=== PATIENT | male | born 1970 | race Caucasian/White ===

== ENCOUNTER 2017-08-27 15:30 | Inpatient (IN) | payer OTHER ==
[2017-08-27 17:47] VITALS: BMI 28.8
--- NOTE | 2017-08-27 19:10 | HP ---
CIWA Score - CIWA Score Nausea/Vomitin-Mild Nausea/No Vomiting Muscle Tremors: 4-Moderate,w/Arms Extend Anxiety: 4-Mod. Anxious/Guarded Agitation: 4-Moderately Restless Paroxysmal Sweats: 3 Orientation: 0-Oriented Tacttile Disturbances: 0-None Auditory Disturbances: 0-None Visual Disturbances: 0-None Headache: 1-Very Mild CIWA-Ar Total Score: 17 Admission ROS BHS - HPI Chief Complaint: I am her for detox. Allergies/Adverse Reactions: Allergies Allergy/AdvReac Type Severity Reaction Status Date / Time Penicillins Allergy Verified 08/27/17 19:04 History of Present Illness: pt is a 47yr old male with a history of alcohol dependence seeking detox for treatment. Exam Limitations: No Limitations - Ebola screening Have you traveled outside of the country in the last 21 days: No Have you had contact with anyone from an Ebola affected area: No Have you been sick,other than usual withdrawal symptoms: No Do you have a fever: No - Review of Systems Constitutional: Chills, Diaphoresis, Loss of Appetite, Night Sweats, Changes in sleep, Unintentional Wgt. Loss EENT: reports: No Symptoms Reported Respiratory: reports: No Symptoms reported Cardiac: reports: Syncope GI: reports: Poor Appetite, Poor Fluid Intake : reports: No Symptoms Reported Musculoskeletal: reports: No Symptoms Reported Integumentary: reports: Flushing, Sweating Neuro: reports: Headache, Tingling, Tremors Endocrine: reports: Excessive Sweating, Flushing, Intolerance to Cold, Intolerance to Heat Hematology: reports: No Symptoms Reported Psychiatric: reports: Judgement Intact, Mood/Affect Appropiate, Orientated x3, Agitated, Anxious Other Systems: Reviewed and Negative Patient History - Patient Medical History Hx Anemia: No Hx Asthma: No Hx Chronic Obstructive Pulmonary Disease (COPD): No Hx Cancer: No Hx Cardiac Disorders: No Hx Congestive Heart Failure: No Hx Hypertension: Yes (not taking medication) Hx Hypercholesterolemia: Yes (not taking any medication) Hx Pacemaker: No HX Cerebrovascular Accident: No Hx Seizures: No Hx Dementia: No Hx Diabetes: No Hx Gastrointestinal Disorders: Yes (h/o acid reflux not taking any medication) Hx Liver Disease: No Hx Genitourinary Disorders: No Hx Sexually Transmitted Disorders: No Hx Renal Disease (ESRD): No Hx Thyroid Disease: No Hx Human Immunodeficiency Virus (HIV): No (negative) Hx Hepatitis C: No (negative) Hx Depression: No Hx Suicide Attempt: No (denies) Hx Bipolar Disorder: No Hx Schizophrenia: No - Patient Surgical History Past Surgical History: No - PPD History Previous Implant?: Yes Documented Results: Negative w/o proof Implanted On Prior [facility] Admission?: Yes PPD to be Administered?: No - Reproductive History Patient is a Female of Child Bearing Age (11 -55 yrs old): No - Smoking Cessation Smoking history: Current every day smoker Have you smoked in the past 12 months: Yes Aproximately how many cigarettes per day: 5 Hx Chewing Tobacco Use: No Initiated information on smoking cessation: Yes 'Breaking Loose' booklet given: 08/27/17 - Substance & Tx. History Hx Alcohol Use: Yes Hx Substance Use: No Substance Use Type: Alcohol Hx Substance Use Treatment: Yes (last detox at [facility] two months ago) - Substances Abused Alcohol Route: Oral Frequency: Daily Amount used: 10-12CANS OF 25oz BEER Age of first use: 14 Date of Last Use: 08/25/17 Family Disease History - Family Disease History Family Disease History: Diabetes: Mother, Other: Father (deceasec/ alcohol related.) Admission Physical Exam BHS - Vital Signs Vital Signs: Vital Signs - 24 hr 08/27/17 17:46 Temperature 98.7 F Pulse Rate 74 Respiratory 20 Rate Blood Pressure 148/103 - Physical General Appearance: Yes: Appropriately Dressed, Tremorous, Irritable, Sweating, Anxious HEENTM: Yes: Normal Voice, Nasal Congestion, Rhinorrhea Respiratory: Yes: Lungs Clear, Normal Breath Sounds, No Respiratory Distress Neck: Yes: No masses,lesions,Nodules Breast: Yes: Within Normal Limits Cardiology: Yes: Regular Rhythm, Regular Rate, S1, S2 Abdominal: Yes: Normal Bowel Sounds Genitourinary: Yes: Within Normal Limits Back: Yes: Normal Inspection Musculoskeletal: Yes: full range of Motion Extremities: Yes: Normal Inspection, Non-Tender, Tremors Neurological: Yes: Fully Oriented, Alert, Normal Response Integumentary: Yes: Normal Color, Diaphoresis Lymphatic: Yes: Within Normal Limits - Diagnostic (1) Alcohol dependence with uncomplicated withdrawal Current Visit: Yes Status: Chronic (2) Hypertension Current Visit: Yes Status: Chronic Qualifiers: Hypertension type: essential hypertension Qualified Code(s): I10 - Essential (primary) hypertension (3) Hypercholesteremia Current Visit: Yes Status: Chronic Cleared for Admission [facility] - Detox or Rehab [facility] Level of Care: Medically Managed Detox Regimen/Protocol: Librium [facility] Breath Alcohol Content Breath Alcohol Content: 0 Urine Drug Screen - Results Drug Screen Negative: Yes
[2017-08-27] MEDS ORDERED: guaiFENesin/D-METHORPHAN HB 10 ML UNIT-DOSE CUPS PO PRN (19:18)
[2017-08-27] MEDS ORDERED: NICOTINE POLACRILEX 4 MG GUM BUC PRN (19:18)
[2017-08-27] MEDS ORDERED: chlordiazePOXIDE HCL 25 MG CAPSULE PO PRN (19:18)
[2017-08-27] MEDS ORDERED: MAG HYDROX/AL HYDROX/SIMETH 30 ML UNIT-DOSE CUP PO PRN (19:18)
[2017-08-27] MEDS ORDERED: MAGNESIUM CITRATE 300 ML BOTTLE PO PRN (19:18)
[2017-08-27] MEDS ORDERED: LOPERAMIDE HCL 2 MG CAPSULE PO PRN (19:18)
[2017-08-27] MEDS ORDERED: MAGNESIUM HYDROX 2400MG/30ML ORAL SUSPENSION 30 ML CUP PO PRN (19:18)
[2017-08-27] MEDS ORDERED: P-EPHED 60MG/TRIPROLIDI 2.5MG TABLET PO PRN (19:18)
[2017-08-27] MEDS ORDERED: MENTHOL/PHENOL 1 EACH UD MM PRN (19:18)
[2017-08-27] MEDS ORDERED: ACETAMINOPHEN 325 MG TABLET (FP) PO PRN (19:18)
[2017-08-27] MEDS ORDERED: hydrOXYzine PAMOATE 50 MG CAPSULE (FP) PO PRN (19:18)
[2017-08-27] MEDS ORDERED: IBUPROFEN 400 MG TABLET (FP) PO PRN (19:18)
[2017-08-27] MEDS ORDERED: MELATONIN 5 MG TABLETS PO PRN (22:00)
[2017-08-27] MEDS: chlordiazePOXIDE HCL 25 MG CAPSULE PO ONE (23:56)
[2017-08-27] MEDS: THIAMINE HCL 100 MG TABLET (FP) PO SCH (23:57)
[2017-08-28] MEDS: chlordiazePOXIDE HCL 25 MG CAPSULE PO ONE (00:05)
[2017-08-28] MEDS: chlordiazePOXIDE HCL 25 MG CAPSULE PO SCH ×5 (00:05→22:02)
[2017-08-28] MEDS: ONDANSETRON *ODT* 4 MG TABLET SL PRN (05:53)
[2017-08-28] MEDS: PRENATAL VITAMINS W/ FOLIC ACID TABLET (FP) PO SCH (10:05)
[2017-08-28] MEDS: NICOTINE 21 MG/24 HOURS TOPICAL PATCH TD SCH (10:05)
[2017-08-28 10:24] LABS: HEMATOCRIT 43.4 % (35.4-49); HEMOGLOBIN 14.6 GM/dL (11.7-16.9); MCHC 33.6 g/dl (32.0-35.9); MEAN PLT VOLUME 9.4 fl (7.5-11.1); PLATELET COUNT 115 K/MM3 (134-434); RBC 4.43 M/mm3 (4.00-5.60); RDW 13.9 % (11.9-15.9); WHITE BLOOD COUNT 5.1 K/mm3 (4.0-10.0)
[2017-08-28 10:52] LABS: CHLORIDE 102 mmol/L (98-107); POTASSIUM 4.4 mmol/L (3.5-5.1); SODIUM 138 mmol/L (136-145)
[2017-08-28 11:10] LABS: ALBUMIN 4.1 g/dl (3.4-5.0); ALK PHOS 93 U/L (45-117); ANION GAP 6 (8-16); BILIRUBIN,TOTAL 0.9 mg/dL (0.2-1.0); BLOOD UREA NITROGEN 10 mg/dL (7-18); CALCIUM 9.5 mg/dL (8.5-10.1); CO2 30 mmol/L (21-32); GLUCOSE,RANDOM 101 mg/dL (74-106); SGOT/AST 346 U/L (15-37); SGPT/ALT 296 U/L (12-78); TOT PROT 8.1 g/dl (6.4-8.2)
--- NOTE | 2017-08-28 11:10 | PN ---
S CIWA - CIWA Score Nausea/Vomitin-Int. Nausea w/Dry Heave Muscle Tremors: 4-Moderate,w/Arms Extend Anxiety: 4-Mod. Anxious/Guarded Agitation: 4-Moderately Restless Paroxysmal Sweats: 1-Minimal Palms Moist Orientation: 0-Oriented Tacttile Disturbances: 1-Very Mild Itch/Numbness Auditory Disturbances: 0-None Visual Disturbances: 0-None Headache: 0-None Present CIWA-Ar Total Score: 18 BHS Progress Note (SOAP) Subjective: ANXIETY,TREMORS,SWEATS,FEET PAIN,NAUSEA. Objective: 08/28/17 11:09 Vital Signs 08/28/17 08/28/17 08/28/17 06:10 06:28 09:18 Temperature 98.5 F 97.1 F L Pulse Rate 68 82 Respiratory 18 18 18 Rate Blood Pressure 139/79 118/84 Laboratory Tests 08/28/17 07:30 WBC 5.1 RBC 4.43 Hgb 14.6 Hct 43.4 MCV 98.0 H MCH 33.0 MCHC 33.6 RDW 13.9 Plt Count 115 L MPV 9.4 OTHER LABS PENDING Assessment: 08/28/17 11:09 WITHDRAWAL SX Plan: CONTINUE DETOX [facility] PRN
[2017-08-28 15:35] LABS: URINE APPEARANCE SLCLOUDY; URINE BILIRUBIN NEGATIVE (<2.0 mg/dL); URINE BLOOD NEGATIVE (NEGATIVE); URINE COLOR AMBER; URINE GLUCOSE (UA) NEGATIVE (NEGATIVE); URINE KETONE NEGATIVE (NEGATIVE); URINE LEUK ESTERASE NEGATIVE (NEGATIVE); URINE NITRITE NEGATIVE (NEGATIVE); URINE UROBILINOGEN 4.0 E.U/dl mg/dL (0.2-1.0)
[2017-08-28 15:36] LABS: URINE PROTEIN 1+ (NEGATIVE)
[2017-08-28 15:41] LABS: CALCIUM OXALATE CRYSTALS MANY /hpf (NONE SEEN); EPI CELLS RARE /HPF (FEW); URINE MUCUS MANY
[2017-08-28] MEDS: THIAMINE HCL 100 MG TABLET (FP) PO SCH (22:02)
[2017-08-29] MEDS: chlordiazePOXIDE HCL 25 MG CAPSULE PO SCH ×3 (05:08→17:32)
[2017-08-29] MEDS: NICOTINE 21 MG/24 HOURS TOPICAL PATCH TD SCH (10:03)
[2017-08-29] MEDS: PRENATAL VITAMINS W/ FOLIC ACID TABLET (FP) PO SCH (10:03)
--- NOTE | 2017-08-29 11:13 | PN ---
S CIWA - CIWA Score Nausea/Vomitin Muscle Tremors: 4-Moderate,w/Arms Extend Anxiety: 4-Mod. Anxious/Guarded Agitation: 4-Moderately Restless Paroxysmal Sweats: 1-Minimal Palms Moist Orientation: 0-Oriented Tacttile Disturbances: 0-None Auditory Disturbances: 0-None Visual Disturbances: 0-None Headache: 0-None Present CIWA-Ar Total Score: 16 BHS Progress Note (SOAP) Subjective: ANXIETY,SLIGHT TREMORS,DIARRHEA. REPORTS SLIGHT BLEEDING IN TISSUE AFTER BM BUT NOT IN BOWL. Objective: 08/29/17 11:10 Vital Signs 08/29/17 08/29/17 08/29/17 03:30 06:01 06:30 Temperature 98.3 F Pulse Rate 64 Respiratory 18 18 18 Rate Blood Pressure 134/86 08/29/17 10:08 Temperature 98.9 F Pulse Rate 75 Respiratory 18 Rate Blood Pressure 128/92 Laboratory Tests 08/28/17 08/28/17 08/28/17 07:30 07:30 07:30 WBC 5.1 RBC 4.43 Hgb 14.6 Hct 43.4 MCV 98.0 H MCH 33.0 MCHC 33.6 RDW 13.9 Plt Count 115 L MPV 9.4 Sodium 138 Potassium 4.4 Chloride 102 Carbon Dioxide 30 Anion Gap 6 L BUN 10 Creatinine 1.0 Creat Clearance w eGFR > 60 Random Glucose 101 Calcium 9.5 Total Bilirubin 0.9 AST 346 H ALT 296 H Alkaline Phosphatase 93 Total Protein 8.1 Albumin 4.1 Urine Color Urine Appearance Urine pH Ur Specific [place] Urine Protein Urine Glucose (UA) Urine Ketones Urine Blood Urine Nitrite Urine Bilirubin Urine Urobilinogen Ur Leukocyte Esterase Urine WBC (Auto) Urine RBC (Auto) Ur Epithelial Cells Calcium Oxalate Crystal Urine Mucus RPR Titer Nonreactive 08/28/17 11:20 WBC RBC Hgb Hct MCV MCH MCHC RDW Plt Count MPV Sodium Potassium Chloride Carbon Dioxide Anion Gap BUN Creatinine Creat Clearance w eGFR Random Glucose Calcium Total Bilirubin AST ALT Alkaline Phosphatase Total Protein Albumin Urine Color Latisha Urine Appearance Slcloudy Urine pH 6.0 Ur Specific [place] 1.026 Urine Protein 1+ H Urine Glucose (UA) Negative Urine Ketones Negative Urine Blood Negative Urine Nitrite Negative Urine Bilirubin Negative Urine Urobilinogen 4.0 e.u/dl Ur Leukocyte Esterase Negative Urine WBC (Auto) None Urine RBC (Auto) 1 Ur Epithelial Cells Rare Calcium Oxalate Crystal Many Urine Mucus Many RPR Titer Assessment: 08/29/17 11:11 WITHDRAWAL SX Plan: CONTINUE DETOX INCREASE PO FLUIDS TOLERATED REPEAT CMP;INR TODAY
[2017-08-29 15:13] LABS: INR 0.94 (0.82-1.09); PROTHROMBIN TIME (PATIENT) 10.6 SEC (9.7-13.0)
[2017-08-29 15:23] LABS: CHLORIDE 103 mmol/L (98-107); POTASSIUM 4.4 mmol/L (3.5-5.1); SODIUM 138 mmol/L (136-145)
[2017-08-29 15:50] LABS: ALBUMIN 3.9 g/dl (3.4-5.0); ALK PHOS 81 U/L (45-117); ANION GAP 9 (8-16); BILIRUBIN,TOTAL 0.5 mg/dL (0.2-1.0); BLOOD UREA NITROGEN 8 mg/dL (7-18); CALCIUM 9.5 mg/dL (8.5-10.1); CO2 26 mmol/L (21-32); CREATININE 0.8 mg/dL (0.7-1.3); GLUCOSE,RANDOM 90 mg/dL (74-106); SGOT/AST 186 U/L (15-37); SGPT/ALT 226 U/L (12-78); TOT PROT 7.8 g/dl (6.4-8.2)
[2017-08-29] MEDS: THIAMINE HCL 100 MG TABLET (FP) PO SCH (22:04)
[2017-08-29] MEDS: chlordiazePOXIDE 5 MG CAPSULE PO SCH (22:04)
[2017-08-29] MEDS: ONDANSETRON *ODT* 4 MG TABLET SL PRN (22:06)
[2017-08-30] MEDS: chlordiazePOXIDE 5 MG CAPSULE PO SCH ×3 (05:43→17:40)
[2017-08-30] MEDS: PRENATAL VITAMINS W/ FOLIC ACID TABLET (FP) PO SCH (10:07)
[2017-08-30] MEDS: NICOTINE 21 MG/24 HOURS TOPICAL PATCH TD SCH (10:07)
[2017-08-30] MEDS ORDERED: WITCH HAZEL 50% (TUCKS) 40 PAD/JAR PAD TP PRN (10:35)
--- NOTE | 2017-08-30 12:32 | PN ---
BHS Progress Note (SOAP) Subjective: Interrupted Sleep, Tremors, H/A, Nausea. Objective: PATIENT A & O X 3, OBSERVED AMBULATING ON UNIT. NO ACUTE DISTRESS. PATIENT DENIES CHEST PAIN. 08/30/17 12:29 Vital Signs Temperature 97.2 F L 08/30/17 09:01 Pulse Rate 94 H 08/30/17 09:01 Respiratory Rate 18 08/30/17 09:01 Blood Pressure 113/84 08/30/17 09:01 O2 Sat by Pulse Oximetry (%) Laboratory Tests 08/28/17 08/28/17 08/28/17 07:30 07:30 07:30 WBC 5.1 RBC 4.43 Hgb 14.6 Hct 43.4 MCV 98.0 H MCH 33.0 MCHC 33.6 RDW 13.9 Plt Count 115 L MPV 9.4 PT with INR INR Sodium 138 Potassium 4.4 Chloride 102 Carbon Dioxide 30 Anion Gap 6 L BUN 10 Creatinine 1.0 Creat Clearance w eGFR > 60 Random Glucose 101 Calcium 9.5 Total Bilirubin 0.9 AST 346 H ALT 296 H Alkaline Phosphatase 93 Total Protein 8.1 Albumin 4.1 Urine Color Urine Appearance Urine pH Ur Specific [place] Urine Protein Urine Glucose (UA) Urine Ketones Urine Blood Urine Nitrite Urine Bilirubin Urine Urobilinogen Ur Leukocyte Esterase Urine WBC (Auto) Urine RBC (Auto) Ur Epithelial Cells Calcium Oxalate Crystal Urine Mucus RPR Titer Nonreactive 08/28/17 08/29/17 08/29/17 11:20 11:50 11:50 WBC RBC Hgb Hct MCV MCH MCHC RDW Plt Count MPV PT with INR 10.60 INR 0.94 Sodium 138 Potassium 4.4 Chloride 103 Carbon Dioxide 26 Anion Gap 9 BUN 8 Creatinine 0.8 Creat Clearance w eGFR > 60 Random Glucose 90 Calcium 9.5 Total Bilirubin 0.5 D AST 186 H D ALT 226 H D Alkaline Phosphatase 81 Total Protein 7.8 Albumin 3.9 Urine Color Latisha Urine Appearance Slcloudy Urine pH 6.0 Ur Specific [place] 1.026 Urine Protein 1+ H Urine Glucose (UA) Negative Urine Ketones Negative Urine Blood Negative Urine Nitrite Negative Urine Bilirubin Negative Urine Urobilinogen 4.0 e.u/dl Ur Leukocyte Esterase Negative Urine WBC (Auto) None Urine RBC (Auto) 1 Ur Epithelial Cells Rare Calcium Oxalate Crystal Many Urine Mucus Many RPR Titer LABS NOTED. RESULTS OF REPEAT CMP AND PT/INR NOTED. 08/30/17 12:33 Assessment: 08/30/17 12:31 WITHDRAWAL SYMPTOMS. THROMBOCYTOPENIA. ELEVATED LIVER ENZYMES. 08/30/17 12:32 Plan: CONTINUE DETOX. INCREASE DAILY PO FLUID INTAKE.
[2017-08-30] MEDS: THIAMINE HCL 100 MG TABLET (FP) PO SCH (22:14)
[2017-08-30] MEDS: chlordiazePOXIDE HCL 10 MG CAPSULE PO SCH (22:14)
[2017-08-31] MEDS: chlordiazePOXIDE HCL 10 MG CAPSULE PO SCH (05:18)
[2017-08-31] MEDS: ONDANSETRON *ODT* 4 MG TABLET SL PRN (05:19)
[2017-08-31 06:14] VITALS: BP 140/89; PULSE 70; TEMP 97.2
--- NOTE | 2017-08-31 17:52 | PN ---
S Progress Note (SOAP) Subjective: Patient denies current Detox symptoms and reports that he feels well overall. Objective: PATIENT A & O X 3, OBSERVED AMBULATING ON UNIT. NO ACUTE DISTRESS. 08/31/17 17:51 Vital Signs Temperature 97.2 F L 08/31/17 06:13 Pulse Rate 70 08/31/17 06:13 Respiratory Rate 18 08/31/17 06:13 Blood Pressure 140/89 08/31/17 06:13 O2 Sat by Pulse Oximetry (%) Laboratory Tests 08/28/17 08/28/17 08/28/17 07:30 07:30 07:30 WBC 5.1 RBC 4.43 Hgb 14.6 Hct 43.4 MCV 98.0 H MCH 33.0 MCHC 33.6 RDW 13.9 Plt Count 115 L MPV 9.4 PT with INR INR Sodium 138 Potassium 4.4 Chloride 102 Carbon Dioxide 30 Anion Gap 6 L BUN 10 Creatinine 1.0 Creat Clearance w eGFR > 60 Random Glucose 101 Calcium 9.5 Total Bilirubin 0.9 AST 346 H ALT 296 H Alkaline Phosphatase 93 Total Protein 8.1 Albumin 4.1 Urine Color Urine Appearance Urine pH Ur Specific [place] Urine Protein Urine Glucose (UA) Urine Ketones Urine Blood Urine Nitrite Urine Bilirubin Urine Urobilinogen Ur Leukocyte Esterase Urine WBC (Auto) Urine RBC (Auto) Ur Epithelial Cells Calcium Oxalate Crystal Urine Mucus RPR Titer Nonreactive 08/28/17 08/29/17 08/29/17 11:20 11:50 11:50 WBC RBC Hgb Hct MCV MCH MCHC RDW Plt Count MPV PT with INR 10.60 INR 0.94 Sodium 138 Potassium 4.4 Chloride 103 Carbon Dioxide 26 Anion Gap 9 BUN 8 Creatinine 0.8 Creat Clearance w eGFR > 60 Random Glucose 90 Calcium 9.5 Total Bilirubin 0.5 D AST 186 H D ALT 226 H D Alkaline Phosphatase 81 Total Protein 7.8 Albumin 3.9 Urine Color Latisha Urine Appearance Slcloudy Urine pH 6.0 Ur Specific [place] 1.026 Urine Protein 1+ H Urine Glucose (UA) Negative Urine Ketones Negative Urine Blood Negative Urine Nitrite Negative Urine Bilirubin Negative Urine Urobilinogen 4.0 e.u/dl Ur Leukocyte Esterase Negative Urine WBC (Auto) None Urine RBC (Auto) 1 Ur Epithelial Cells Rare Calcium Oxalate Crystal Many Urine Mucus Many RPR Titer LABS NOTED. Assessment: 08/31/17 17:52 COMPLETION OF DETOX REGIMEN. Plan: PATIENT SCHEDULED FOR DISCHARGE FROM DETOX UNIT TODAY.
--- NOTE | 2017-08-31 17:56 | DS ---
[facility] Detox Discharge Summary Admission Date: 08/27/17 Discharge Date: 08/31/17 - History Present History: Alcohol Dependence Additional Comments: PATIENT ADVISED TO CONSIDER LOCAL 12-STEP / AA OUTPATIENT SUPPORT GROUPS FOR AFTERCARE. PATIENT WAS DISCHARGED FROM DETOX UNIT IN STABLE MEDICAL CONDITION. Pertinent Past History: HTN (no meds.), Hypercholesterolemia (no meds.), Acid Reflux, Elevated Liver Enzymes. - Physical Exam Results Vital Signs: Vital Signs Temperature 97.2 F L 08/31/17 06:13 Pulse Rate 70 08/31/17 06:13 Respiratory Rate 18 08/31/17 06:13 Blood Pressure 140/89 08/31/17 06:13 O2 Sat by Pulse Oximetry (%) Pertinent Admission Physical Exam Findings: WITHDRAWAL SYMPTOMS. Laboratory Tests 08/28/17 08/28/17 08/28/17 07:30 07:30 07:30 WBC 5.1 RBC 4.43 Hgb 14.6 Hct 43.4 MCV 98.0 H MCH 33.0 MCHC 33.6 RDW 13.9 Plt Count 115 L MPV 9.4 PT with INR INR Sodium 138 Potassium 4.4 Chloride 102 Carbon Dioxide 30 Anion Gap 6 L BUN 10 Creatinine 1.0 Creat Clearance w eGFR > 60 Random Glucose 101 Calcium 9.5 Total Bilirubin 0.9 AST 346 H ALT 296 H Alkaline Phosphatase 93 Total Protein 8.1 Albumin 4.1 Urine Color Urine Appearance Urine pH Ur Specific [place] Urine Protein Urine Glucose (UA) Urine Ketones Urine Blood Urine Nitrite Urine Bilirubin Urine Urobilinogen Ur Leukocyte Esterase Urine WBC (Auto) Urine RBC (Auto) Ur Epithelial Cells Calcium Oxalate Crystal Urine Mucus RPR Titer Nonreactive 08/28/17 08/29/17 08/29/17 11:20 11:50 11:50 WBC RBC Hgb Hct MCV MCH MCHC RDW Plt Count MPV PT with INR 10.60 INR 0.94 Sodium 138 Potassium 4.4 Chloride 103 Carbon Dioxide 26 Anion Gap 9 BUN 8 Creatinine 0.8 Creat Clearance w eGFR > 60 Random Glucose 90 Calcium 9.5 Total Bilirubin 0.5 D AST 186 H D ALT 226 H D Alkaline Phosphatase 81 Total Protein 7.8 Albumin 3.9 Urine Color Latisha Urine Appearance Slcloudy Urine pH 6.0 Ur Specific [place] 1.026 Urine Protein 1+ H Urine Glucose (UA) Negative Urine Ketones Negative Urine Blood Negative Urine Nitrite Negative Urine Bilirubin Negative Urine Urobilinogen 4.0 e.u/dl Ur Leukocyte Esterase Negative Urine WBC (Auto) None Urine RBC (Auto) 1 Ur Epithelial Cells Rare Calcium Oxalate Crystal Many Urine Mucus Many RPR Titer LABS NOTED. - Treatment Hospital Course: Detox Protocol Followed, Detoxed Safely, Responded well, Discharged Condition Good Patient has Accepted a Rehab Referral to: PATIENT ADVISED TO CONSIDE [facility] 12- STEP/AA OUTPATIENT SUPPORT GROUPS. - Medication Discharge Medications: Ambulatory Orders NK [No Known Home Medication] 08/27/17 - Diagnosis (1) Alcohol dependence with uncomplicated withdrawal Status: Acute (2) Elevated liver enzymes Status: Acute (3) Hypercholesteremia Status: Chronic (4) Hypertension Status: Chronic Qualifiers: Hypertension type: essential hypertension Qualified Code(s): I10 - Essential (primary) hypertension - AMA Did Patient Leave Against Medical Advice: No
== END 2017-08-31 08:45 | disposition home or self-care (01) | DRG 775 ==
LOC: YASAS 15:30 → Y3N 19:34
PROVIDERS: ADMIT Surgery; ATTEND Surgery
PROC: HZ2ZZZZ Detoxification Services for Substance Abuse Treatment (ICD-10-PCS; principal; 2017-08-27)
DX: F10.230 Alcohol dependence with withdrawal, uncomplicated (principal); F17.210 Nicotine dependence, cigarettes, uncomplicated; I10 Essential (primary) hypertension; R94.5 Abnormal results of liver function studies; E78.00 Pure hypercholesterolemia, unspecified; D69.6 Thrombocytopenia, unspecified; Z88.0 Allergy status to penicillin
CPT/HCPCS: 36415; 80053; 81003; 81015; 85027; 85610; 86593; Q0162